=== PATIENT | female | born 1990 | race Caucasian/White ===

== ENCOUNTER 2019-08-30 10:36 | Day surgery (SDC) | payer MEDICAID, SELFPAY ==
[2019-08-29 09:00] VITALS: BMI 20.1
--- NOTE | 2019-08-29 09:13 | ANES.PREANE2 ---
Pre-Anesthetic Assessment Pre-Anesthetic Assessment: Height/Weight: Height 1.57 m Weight 49.895 kg Preop Diagnosis: undesired fertility Proposed Procedure: Operation Date: 08/30/19 12:00 Proposed Procedures p Lap Fulg,Removal of Tubes Sterilization(Not Applicable) - Ron Snider DO Social: Social History: Tobacco (quit 2017) Exam: Pre-Anes Outpt Exam: alert, oriented x 3, clear to auscultation bilaterally and regular rate & rhythm Airway: Submandibular: WNL Cervical ROM: WNL MP: 1 Dentition: Other (teeth ok) History/ROS: No significant history except as noted CV/HEM: CV/HEM: None reported : : None reported Hepatic: Hepatic: None reported GI: GI: None reported Metabolic: Metabolic: Thyroid Musc/skel: Musc/skel: None reported Neuropsych: Neuropsych: None reported Anesthetic Plan: ASA status: 2 Anesthesia: Anesthesia Evaluation and General Risk of > 500 ml blood loss (7ml/kg in children): No PFSH Anesthesia PFSH: Medical History (Updated 08/29/19 @ 08:59 by Michelle Cardenas RN) Hypothyroid Patient denies medical problems Patient denies any past medical history of hypertension, diabetes, heart, lung, liver, kidney, bleeding, or clotting problems. Surgical History History of cholecystectomy (~2009) Social History Smoking and tobacco status: former smoker Quit status (tobacco): has quit using tobacco Year quit tobacco: 2015 Former quit date comment: Started smoking at 17 years and smoked up to 2 packs weekly Alcohol intake: never Female Reproductive History: Date of last menstrual period: 08/23/19 Data Anesthesia Cardiac Studies: No Data to Display
[2019-08-29 09:22] LABS: Basophils % 0.5 %; Eosinophils # 0.2 10^3/uL (0.0-0.8); Eosinophils % 3.6 %; Hematocrit 36.3 % (37.0-47.0); Hemoglobin 11.6 g/dL (11.5-15.3); Lymphocytes # 1.9 10^3/uL (0.8-4.8); Lymphocytes % 28.9 %; Mean Corpuscular Hemoglobin 26.3 pg (28.0-34.0); Mean Corpuscular Volume 82.3 fL (81-99); Mean Platelet Volume 8.9 fL (7.4-10.4); Monocytes # 0.5 10^3/uL (0.2-0.9); Monocytes % 7.3 %; Neutrophils # 3.8 10^3/uL (1.8-7.7); Neutrophils % 59.4 %; Nucleated Red Blood Cells % 0 %; Platelet Count 281 10^3/cmm (130-400); Red Blood Count 4.41 10^6/uL (4.1-5.3); Red Cell Distribution Width 14.5 % (12.1-15.1); White Blood Count 6.4 10^3/uL (4.0-10.0)
[2019-08-29 09:26] LABS: OR HCG Qualitative Urine Negative (Negative)
[2019-08-30] VITALS (12 sets, daily range): BP systolic 98–120; BP diastolic 55–92; PULSE 63–114; RESP 13–28; TEMP 36.3–36.8; O2SAT 97–100
[2019-08-30] MEDS: sodium chloride 0.9% 1,000 ML 30 ML IV (11:09)
[2019-08-30] MEDS: ketorolac 30 mg/mL INJ IVP (11:11)
[2019-08-30] MEDS: phenazopyridine 100 mg Tablet 200 MG PO (11:12)
[2019-08-30] MEDS: gabapentin 300 mg Capsule PO (11:35)
--- NOTE | 2019-08-30 11:46 | W.PM.OPSUD ---
Surgery/Procedure H&P Update DATE OF PROCEDURE: August 30, 2019 DATE H&P PERFORMED: 08/17/19 PREOP DIAGNOSIS: undesired fertility PLANNED PROCEDURE: Operation Date: 08/30/19 11:55 Proposed Procedures p Lap Fulg,Removal of Tubes Sterilization(Not Applicable) - Ron Snider DO
--- NOTE | 2019-08-30 14:54 | SUR.PHASEI ---
1452 PATIENT TO PACU AT THIS TIME. PWD. RR EVEN AND UNLABORED. 3 STABS CLOSED WITH EXOFIN. PATIENT NOTED TO BE SLEEPING WITH NO DISTRESS.
--- NOTE | 2019-08-30 15:12 | PM.OP ---
Operative Report Date of procedure: August 30, 2019 Pre-op Diagnosis: undesired fertility Pre-op Diagnosis: secondary infertility Post-op diagnosis: same Post-op Findings: normal uterus tubes and ovaries. adequate resection of both tubes at end of case. Implants: Laparoscopic bilateral salpingectomy Release of peritoneal adhesion Specimens removed/disposition: Bilateral fallopian tubes Surgeon: Ron Snider Anesthesia: General Estimated blood loss (mL): 5 IV fluids (mL): 300 Urine output (mL): 125 Complications: None Findings: Normal uterus tubes and ovaries adequate resection of bilateral fallopian tubes and case Condition: stable Disposition: same day Brief History: 28-year-old multiparous young lady healthy desires permanent sterilization understands a tubal ligation is permanent no guarantee of success fails 1-300 times risk of ectopic cannot be reversed further understands the risk of surgery include but not limited to infection bleeding damage to bowel bladder nerves vessels ureters other organs possible need to remove or repair disease or damage organs possibility of laparotomy. Procedure: Ms. Rivers is a healthy 28-year-old multiparous lady who desires permanent sterilization seen earlier by me for permanent sterilization discussed options and alternatives desires to undergo bilateral salpingectomy. Patient was identified counseled permits signed taken to the operating room [facility] underwent general tracheal anesthesia placed in dorsolithotomy position for operative laparoscopy. Examination under anesthesia was performed abdomen vagina perineum prepped and draped in usual manner timeout was performed. Massey was placed in the bladder to open drainage Hulka tenaculum was attached to the cervix for uterine manipulation. At this point time anatomic landmarks in the abdomen were identified. The infraumbilical region was infiltrated with 5 cc of lidocaine and Marcaine. A vertical incision was made and a 5 mm trocar blade was trocar placed under optical guidance. Patient was placed in Trendelenburg and then accessory trochars were placed left and right lower quadrants under direct visualization and after infiltrating Marcaine. Both trochars were placed 4 fingerbreadths in line to the ASIS and the umbilicus. An 8 mm trochars placed on the left 5 on the right. With placement of accessory trochars and 5 mm laparoscopic telescope visualization of the abdomen was performed liver edge is unremarkable gallbladder not seen diaphragm normal. Spleen not seen. Pelvis was unremarkable no evidence of endometriosis normal-looking uterus tubes and ovaries. Interesting there was a peritoneal adhesion from the sigmoid to the left pelvic sidewall there also was a defect in this adhesion about 1 cm. No other abnormalities. With appropriate identification the left fallopian tube was grasped and using radiofrequency current the mesosalpinx was desiccated down to approximate 1/2 cm from the uterine cornua on the left the tube was then doubly desiccated cut and the specimen extracted to the millimeter trocar. A similar procedure was performed on the patient's right and the right fallopian tube withdrawn to the millimeter trocar. Both tubes are drawn under direct observation and recovered intact. At this point time the pelvis was inspected there were no abnormalities the previously noted small defect in the peritoneum adhesion from the sigmoid to the left pelvic sidewall was released. Patient did tolerate procedure well once were satisfied that the operative sites were hemostatic gas was allowed to leave the abdomen trochars removed under direct observation. The abdominal incisions were closed with Dermabond without difficulty. Massey catheter was removed Hulka tenaculum was removed from the cervix. There was no bleeding from the cervix. Procedure was then terminated patient was awake awakened extubated transferred from the operative [facility] taken recovery in good condition. Disposition she will go home today Tylenol and ibuprofen as scheduled for pain relief oxycodone supplemented as needed stool softeners as needed activity as tolerated slowly to increase she may return to work when desired plan follow-up with me in 2 weeks. There were no complications in this dictation thank you very much
--- NOTE | 2019-08-30 15:37 | SUR.PHASEI ---
1531 PATIENT TO OPS AT THIS TIME. PATIENT RATES PAIN 4/10, CRAMPING PAIN. PATIENT RR EVEN AND UNLABORED. REPORTS I FEEL LIKE I'M GOING TO HAVE AN ANXIETY ATTACK PATIENT HAS HX OF ANXIETY, NOT CURRENTLY TAKING MEDICATIONS.
== END 2019-08-30 16:35 | disposition home or self-care (01) ==
PROVIDERS: PCP Nurse Practitioner Family; Visit Provider Obstetrics & Gynecology Female Pelvic Medicine and Reconstructive Surgery
PROC: (CPT 58661; principal; 2019-08-30 11:55)
DX: Z30.2 Encounter for sterilization (principal); Z82.49 Family history of ischemic heart disease and other diseases of the circulatory system; Z83.3 Family history of diabetes mellitus; Z87.891 Personal history of nicotine dependence
CPT/HCPCS: 58661; 12345; 36415; 81025; 84703; 85025; 88302; 96365; 96374; J0131; J1100; J1885; J2001; J2405; J2704; J2710; J3010; J3490; J7030

== ENCOUNTER 2020-07-15 23:18 | Emergency (ER) | payer MEDICAID, SELFPAY ==
[2020-07-15 23:24] VITALS: BP 116/80; PULSE 72; RESP 16; TEMP 37.3; O2SAT 99; BMI 20.1
[2020-07-15 23:34] VITALS: O2SAT 99
--- NOTE | 2020-07-16 00:16 | ED_ITS ---
HPI - COVID General: Chief Complaint: COVID symptoms Stated Complaint: covid+/sob Time Seen by Provider: 07/16/20 00:06 Triage information: Has fever, cough or shortness of breath . No known COVID + exposure last 14 days History of Present Illness: HPI Narrative: Patient is a 29-year-old female comes to the ED after testing positive for Covid on Thursday. Patient says she has a cough, nasal congestion loss of taste and smell. She says she has been using her albuterol inhaler as needed for any shortness of breath. Her cough she describes as productive and she is getting up green sputum. Denies any current fevers, sore throat, chest pain, abdominal pain, nausea/vomiting, bladder or bowel symptoms. COVID 19 common symptoms: positive productive cough; negative fever(s), chills, non-productive cough, dyspnea, fatigue, headache(s), throat pain, nasal congestion, nausea, vomiting or diarrhea COVID 19 other sytmptoms: negative chest pain COVID Results: No Data to Display Review of Systems 2 Const: Reports: change in appetite (decreased appetite and loss of taste and smell); Denies: fever(s), chills or fatigue Eyes: Denies: change in vision or eye discomfort ENMT: Denies: throat pain, odynophagia, nasal discharge or nasal congestion Card: Denies: chest pain, palpitations, edema, swelling of feet/ankles, dyspnea on exertion or orthopnea Resp: Reports: productive cough and change in phlegm color (greenish color); Denies: dyspnea or non-productive cough GI: Denies: abdominal pain, nausea, vomiting, diarrhea, constipation or hematochezia : Denies: flank pain, dysuria or hematuria Musc: Denies: neck pain, back pain or extremity swelling Skin/Breast: Denies: rash or new lesions Neuro: Denies: headache(s), numbness in extremities or weakness in extremities PFSH ED PFSH: Medical History Hypothyroid Patient denies medical problems Patient denies any past medical history of hypertension, diabetes, heart, lung, liver, kidney, bleeding, or clotting problems. Surgical History History of cholecystectomy (~2009) Family History Grandfather Hypertension paternal Diabetes Paternal Stroke paternal Heart disease paternal Hyperlipidemia paternal Family/Other Diabetes Paternal uncle Mother Thyroid condition Grandfather No problems noted. Grandmother Thyroid condition Maternal Denies family history of Colon cancer Ovarian cancer Breast cancer Uterine cancer Social History Smoking and tobacco status: former smoker Quit status (tobacco): has quit using tobacco Year quit tobacco: 2015 Former quit date comment: Started smoking at 17 years and smoked up to 2 packs weekly Alcohol intake: never Female Reproductive History: Date of last menstrual period: 06/17/20 Physical Exam Const: COMMON NORMALS: no acute distress, patient oriented x3 and alert GENERAL APPEARANCE: cooperative and comfortable HENMT: COMMON NORMALS: normocephalic HEAD & SCALP: normocephalic MOUTH: Normal oral and palatal mucosa present THROAT: posterior oropharynx normal and uvula midline Eye: COMMON NORMALS: Equal, round and reactive pupils present PUPIL: Yes Equal, round and reactive pupils present Neck/C-Spine: COMMON NORMALS: supple GENERAL: Yes normal visual inspection Resp: COMMON NORMALS: normal respiratory effort, No retractions and No use of accessory muscles EFFORT & INSPECTION: Yes able to speak in complete sentences, No tachypneic and No labored AUSCULTATION: crackles (Otto but all other lung cleaning were clear to auscultation bilaterally.) Laterality: left (Left lung base had some very mild crackling. ) Cardio: COMMON NORMALS: regular rate, regular rhythm, S1 normal heart sound present, S2 normal heart sound present, No gallops present (Cardio), No clicks present (Cardio), No murmurs present (Cardio) and Peripheral pulses 2+ throughout RATE: regular rate RHYTHM: regular rhythm HEART SOUNDS: S1 normal heart sound present and S2 normal heart sound present PERIPHERAL PULSES: Peripheral pulses 2+ throughout GI: COMMON NORMALS: Normal to inspection, nondistended, normoactive bowel sounds present, Soft to palpation, non-tender and no masses PALPATION: Yes Soft to palpation : COMMON NORMALS: Yes no CVA tenderness BLADDER/KIDNEY EXAM: Yes no CVA tenderness Back/Pelvis: COMMON NORMALS: no CVA tenderness Extremity: COMMON NORMALS: normal to inspection Neuro: COMMON NORMALS: patient oriented x3 and moves all extremities SENSORIUM/ORIENTATION: Yes alert Skin: GENERAL SKIN EXAM: dry skin Course Vital Signs: Vital signs: Vital Signs Temperature 99.1 F 07/15/20 23:24 Pulse Rate 68 07/16/20 01:09 Respiratory Rate 18 07/16/20 01:09 Blood Pressure 116/80 07/15/20 23:24 Pulse Oximetry 97 07/16/20 01:09 MDM - COVID MDM Narrative: Medical decision making narrative: Patient is a 29-year-old female that tested positive for COVID-19 on July 13. She is complaining of having productive cough with green sputum, no taste or smell and nasal congestion. Exam shows a patient that is healthy and in no acute distress or pain. She is showing no signs of respiratory distress. Mild crackling heard in base of left lower lung but all other lung cleaning clear to auscultation bilaterally. O2 sat 97% on room air, respirations 18, pulse 68, temp 99.1 and blood pressure 116/80. Chest x-ray showed no acute infiltrates or findings. Patient was stable to be discharged home. She was home with a prescription for a Z-Junaid and Medrol Dosepak. Return to ED precautions given. Follow-up with PCP in 7 to 10 days for reevaluation. Continue self quarantine as previously directed. Imaging Data: CXR: Attestation: I personally reviewed and interpreted this imaging study as follows: My impression: No acute findings or infiltrates seen. COVID Results: No Data to Display Discharge Plan Discharge Patient Disposition: Home Clinical Impression: COVID-19, Bronchitis due to 2019 novel coronavirus Condition: Stable Prescriptions: New azithromycin 250 mg tablet See Rx Instructions .ROUTE .COMPLEX Qty: 6 RF: 0 Medrol (Junaid) 4 mg tablets,dose pack See Rx Instructions .ROUTE .COMPLEX Qty: 21 RF: 0 No Action levothyroxine 200 mcg capsule 200 mcg PO DAILY RF: 0 albuterol sulfate 90 mcg/actuation HFA aerosol inhaler 2 puff INHALATION Q6H PRN (Reason: shortness of breath or wheezing) Qty: 8.5 RF: 0 fexofenadine-pseudoephedrine [Birdie-D 12 Hour] 60-120 mg tablet extended release 12 hr 1 tab PO Q12H PRN (Reason: sinus symptoms) 15 Days Qty: 30 RF: 0 amoxicillin-pot clavulanate 875-125 mg tablet 1 tab PO BID 7 Days Qty: 14 RF: 0 Discharge Orders: Discharge ED (Routine); Ordered 07/16/20 Ordered By: Jewel Bob Referrals: Betsy Villarreal FNP [Primary Care Provider] - Discharge Diet: Regular Discharge Activity: Limit activity as instructed Patient Instructions: Acute Bronchitis (ED) Activity Restrictions/Additional Instructions: Follow-up with medical provider as directed in 7 to 10 days. Continue self quarantine as previously instructed. Take medications as prescribed. Take [id number] nasal decongestants to help with symptoms. Drink plenty of fluids and stay hydrated. Take [id number] Tylenol or ibuprofen for any fevers. Return to the ER or your medical provider if condition worsens. Please read and understand discharge instructions. If any questions, please ask. Coding Level of Care Code ED Family Medicine Physician for Yasmine Fwsatinder Exam Comprehensive
--- NOTE | 2020-07-16 00:26 | XRR_ITS ---
PROCEDURE INFORMATION: Exam: XR Chest, 1 View Exam date and time: 07/16/2020 12:50 AM Age: 29 years old Clinical indication: Condition or disease; Other: Covid +; Shortness of breath; Prior surgery; Surgery type: Gb; Additional info: Cough TECHNIQUE: Imaging protocol: XR of the chest Views: 1 view. COMPARISON: No relevant prior studies available. FINDINGS: Lungs: Unremarkable. No consolidation. Pleural space: Unremarkable. No pleural effusion. No pneumothorax. Heart/Mediastinum: Unremarkable. No cardiomegaly. Bones/joints: Unremarkable. XR/XR chest 1V portable [id number] IMPRESSION: No acute findings.
[2020-07-16 01:09] VITALS: PULSE 68; RESP 18; O2SAT 97
== END 2020-07-16 01:11 | disposition home or self-care (01) ==
PROVIDERS: Emergency Provider Physician Assistant; PCP Nurse Practitioner Family
DX: U07.1 COVID-19 (principal); J40 Bronchitis, not specified as acute or chronic; Z87.891 Personal history of nicotine dependence
CPT/HCPCS: 12345; 71045; 99281; 99282

== ENCOUNTER 2021-01-25 13:59 | Outpatient (CLI) | payer MEDICAID, SELFPAY ==
--- NOTE | 2021-01-25 14:06 | XR_ITS ---
WS: [id number] Right shoulder, 2 views, 01/25/2021 Clinical Data: M25.511 - Pain in right shoulder Comparison: None. Findings: No fractures or dislocations are seen. The AC joint is normal. The adjacent right clavicle, right sca pula and ribs are normal. The soft tissues are unremarkable. XR/XR shoulder RT min 2V* [id number] Impression: Negative right shoulder.
--- NOTE | 2021-01-25 14:06 | XR_ITS ---
WS: [id number] Thoracic spine, 5 views including obliques, 01/25/2021 Clinical Data: M54.9 - Dorsalgia, unspecified Comparison: None. Findings: No compression fractures are seen. The disc heights are normal. The paraspinal regions are normal. There are clips in the right upper quadrant from a cholecystectomy . XR/XR thoracic spine min 4V [id number] Impression: Negative thoracic spine.
== END 2021-01-25 14:00 | disposition home or self-care (01) ==
PROVIDERS: PCP Nurse Practitioner Family; Visit Provider Emergency Medicine
DX: M25.511 Pain in right shoulder; G89.29 Other chronic pain; M54.6 Pain in thoracic spine
CPT/HCPCS: 72074; 73030

== ENCOUNTER 2021-02-26 16:12 | Outpatient (CLI) | payer MEDICAID, SELFPAY ==
--- NOTE | 2021-02-26 16:45 | MR_ITS ---
WS: [id number] MRI RIGHT SHOULDER HISTORY: M25.511 - Pain in right shoulder COMPARISON: Radiographs 01/25/2021 TECHNIQUE: Multiplanar sequences of the shoulder joint are submitted. Normal appearance of the AC joint. No acute inflammatory changes. Slight downward tilting of the acro mion. 5 mm osteophyte projects from the distal inferior acromion which is encroaching upon the supras pinatus muscle with superior humeral head. No subacromial or subdeltoid fluid. No os acromion. Biceps tendon is in normal position. No rotator cuff tear. Rotator cuff muscles are normal size with no atrophy or edema. There is a small amount of increased signal along the bursal surface of the supraspinatus muscle. No labral abnormali ties. MR/MR shoulder RT wo con* [id number] IMPRESSION: 1. Downward tilting of the acromion with a 5 mm osteophyte along the distal un dersurface impinging upon the supraspinatus muscle directly over the humeral he ad. Moderate narrowing of the acromiohumeral space. 2. No rotator cuff tear.
== END 2021-02-26 16:13 | disposition home or self-care (01) ==
LOC: RADSHAW 16:16
PROVIDERS: PCP Nurse Practitioner Family; Visit Provider Emergency Medicine
DX: M25.511 Pain in right shoulder (principal); G89.29 Other chronic pain
CPT/HCPCS: 73221

== ENCOUNTER 2021-04-05 13:26 | Outpatient (CLI) | payer MEDICAID, SELFPAY ==
--- NOTE | 2021-04-05 13:45 | MR_ITS ---
WS: [id number] MRI CERVICAL SPINE NONCONTRAST TECHNIQUE: Sagittal T1, T2 and STIR imaging. Axial T2, gradient, and fiesta imaging. CLINICAL INFORMATION: PAIN IN RIGHT SHOULDER COMPARISON: None. FINDINGS: Straightening of the normal cervical lordosis. No high-grade central canal narrowing. Cord signal is normal. C2-C3: Normal. C3-C4: Mild osteophytic ridging. Mild left bony foraminal narrowing. Mild facet arthropathy. Spinal c anal is patent. C4-C5: Mild eccentric osteophytic ridging. Mild bilateral bony foraminal narrowing. Mild facet arthro patricia. Spinal canal is patent. C5-C6: Disc osteophyte complex with endplate ridging. Mild facet arthropathy. Mild central canal sten osis with slight contact of the cervical cord. Mild left foraminal narrowing. C6-C7: Mild disc bulging with osteophytic ridging. Disc bulging slightly eccentric to the right. Mild right and no significant right foraminal narrowing. C7-T1: No significant disc bulging. Mild facet arthropathy. Spinal canal is patent. Visualized brain stem structures: Normal. Prevertebral soft tissues: Normal. MR/MR cervical spin wo con* [id number] IMPRESSION: 1. Straightening of the normal cervical lordosis with mild cervical curve. No high-grade central canal stenosis. Cord signal is normal. 2. Disc osteophyte complex C5-C6 with a small shallow central protrusion. This results in mild central canal stenosis with slight effacement of ventral theca l sac.Slight contact of the cervical cord. 3. Mild disc osteophyte complex C6-C7 with slight effacement of the ventral th ecal sac. 4. Mild bony foraminal narrowing mainly due to osteophytic ridging more promin ent at bilateral C4-5, left C5-C6 and right C6-C7. No significant nerve root im pingement. 5. Mild multilevel facet arthropathy worse at bilateral C4-5.
== END 2021-04-05 13:27 | disposition home or self-care (01) ==
LOC: RADSHAW 13:28
PROVIDERS: PCP Nurse Practitioner Family; Visit Provider Orthopaedic Surgery
DX: M25.511 Pain in right shoulder (principal); G89.29 Other chronic pain; M47.812 Spondylosis without myelopathy or radiculopathy, cervical region; M25.78 Osteophyte, vertebrae
CPT/HCPCS: 72141

== ENCOUNTER → 2021-05-08 08:08 | Outpatient (BNVA) | payer MEDICAID, SELFPAY | PROVIDERS: PCP Nurse Practitioner Family; Referring Provider Orthopaedic Surgery; Visit Provider Specialist | DX: G89.29 Other chronic pain; Z87.891 Personal history of nicotine dependence; R20.0 Anesthesia of skin; M25.511 Pain in right shoulder | CPT/HCPCS: 95908 ==

== ENCOUNTER → 2021-05-29 10:30 | Outpatient (BNVA) | payer MEDICAID, SELFPAY | PROVIDERS: PCP Nurse Practitioner Family; Referring Provider Orthopaedic Surgery; Visit Provider Anesthesiology Pain Medicine | DX: G89.29 Other chronic pain (principal); M25.511 Pain in right shoulder; M50.90 Cervical disc disorder, unspecified, unspecified cervical region; M47.812 Spondylosis without myelopathy or radiculopathy, cervical region; M48.062 Spinal stenosis, lumbar region with neurogenic claudication; Z87.891 Personal history of nicotine dependence | CPT/HCPCS: 99205 ==

== ENCOUNTER → 2022-06-11 12:34 | Outpatient (BNVA) | payer MEDICAID, SELFPAY | PROVIDERS: PCP Nurse Practitioner Family; Visit Provider Emergency Medicine | DX: R50.9 Fever, unspecified (principal); R06.02 Shortness of breath; J11.1 Influenza due to unidentified influenza virus with other respiratory manifestations | CPT/HCPCS: 87400; 87426 ==